=== PATIENT | male | born 1960 | race Two or more races ===

== ENCOUNTER 2020-07-29 11:51 | Outpatient (CLI) | payer OTHER | END 2020-07-29 11:59 | disposition home or self-care (01) | LOC: TOM 11:51 | DX: Z12.11 Encounter for screening for malignant neoplasm of colon (principal); K59.09 Other constipation ==

== ENCOUNTER 2023-02-25 07:44 | Outpatient (CLI) | payer OTHER | END 2023-02-25 07:50 | disposition home or self-care (01) | LOC: TOM 07:44 | DX: R10.84 Generalized abdominal pain (principal); R19.4 Change in bowel habit; R63.4 Abnormal weight loss ==